=== PATIENT | male | born 1940 | race Caucasian/White ===

== ENCOUNTER 2023-07-27 10:22 | Outpatient (CLI) | payer MEDICARE ==
[~2023-07-27] VITALS: Ht 175.3 cm; Wt 122.5 kg
[2023-07-27 10:43] LABS: TOTAL HEMOGLOBIN 16.9 G/dl (14.0-17.9)
[2023-07-27] MEDS ORDERED: albuterol 2.5 MG/3 ML nebule NEB PRN (10:55)
[2023-07-27 11:21] VITALS: PULSE 75; RESP 12; O2SAT 96
== END 2023-07-27 23:59 | disposition home or self-care (01) ==
LOC: RT 10:22
PROVIDERS: ATTEND Internal Medicine Pulmonary Disease
DX: J44.9 Chronic obstructive pulmonary disease, unspecified (principal); R94.2 Abnormal results of pulmonary function studies
CPT/HCPCS: 85018; 94060; 94727; 94729; 94760